=== PATIENT | female | born 2005 | race Asian ===

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

== ENCOUNTER 2024-11-28 02:44 | Observation (INO) | payer OTHER ==
[~2024-11-28] VITALS: Ht 165.1 cm; Wt 54.4 kg
[2024-11-28 03:49] LABS: BASOPHILS ABSOLUTE AUTO 0.05 K/mm3 (0.00-0.23); BASOPHILS PERCENT AUTO 1 % (0-2); EOSINOPHILS ABSOLUTE AUTO 0.06 K/mm3 (0.00-0.68); EOSINOPHILS PERCENT AUTO 1 % (0-6); Hematocrit 38.6 % (33.0-51.0); Hemoglobin 13.4 g/dL (11.5-16.0); IMMATURE GRAN ABSOLUTE AUTO 0.04 K/mm3 (0.00-0.10); IMMATURE GRAN PERCENT AUTO 1 % (0-1); LYMPHOCYTES ABSOLUTE AUTO 2.27 K/mm3 (0.84-5.20); LYMPHOCYTES PERCENT AUTO 26 % (21-46); MONOCYTES ABSOLUTE AUTO 0.60 K/mm3 (0.16-1.47); MONOCYTES PERCENT AUTO 7 % (4-13); Mean Corpuscular HGB Conc 34.7 g/dL (31.5-36.5); Mean Corpuscular Volume 90 fL (80-100); NEUTROPHILS ABSOLUTE AUTO 5.70 K/mm3 (1.96-9.15); NEUTROPHILS PERCENT AUTO 65 % (41-73); NRBC ABSOLUTE 0.00 K/mm3 (0.00-0.02); NRBC Auto 0.0 /100 WBC (0.0-0.2); Platelet Count 314 K/mm3 (150-400); RDW Coefficient Variation 11.7 % (11.7-14.2); RDW Standard Deviation 38.0 fL (35.1-46.3)
[2024-11-28 04:10] LABS: Ethanol (Alcohol), Blood, Med <3 mg/dL; Magnesium, Blood 2.2 mg/dL (1.6-2.4); Salicylate <1.7 mg/dL (2.8-20.0)
[2024-11-28 04:11] LABS: Alanine Aminotransfer (ALT/SGP 19 U/L (12-78); Albumin, Blood 4.3 g/dL (3.4-5.0); Albumin/Globulin Ratio 1.2 (0.8-1.8); Anion Gap 10 mmol/L (3-11); Aspartate Aminotrans (AST/SGOT 16 U/L (12-37); Bilirubin, Total 0.7 mg/dL (0.1-1.0); Blood Urea Nitrogen 11 mg/dL (8-24); CO2, Blood 25 mmol/L (21-32); Calcium, Blood 9.2 mg/dL (8.5-10.1); Chloride, Blood 106 mmol/L (98-108); Creatinine, Blood 0.68 mg/dL (0.40-1.00); Globulin, Blood 3.6 g/dL (2.2-4.0); Glucose, Blood 110 mg/dL (70-99); Potassium, Blood 3.6 mmol/L (3.5-5.5); Sodium, Blood 137 mmol/L (136-145); Total Protein, Blood 7.9 g/dL (6.4-8.2)
[2024-11-28 04:12] LABS: Acetaminophen, Random <2.0 ug/mL (10.0-30.0)
[2024-11-28 11:16] VITALS: BP 120/80
[2024-11-28] MEDS ORDERED: BUSP5 PO (15:25)
[2024-11-28] MEDS ORDERED: LATUDA20 M1 PO (15:25)
== END 2024-11-28 13:48 | disposition other institution (70) ==
LOC: ER 02:44 → EOR 02:45
PROVIDERS: ADMIT Student in an Organized Health Care Education/Training Program
DX: F32.A Depression, unspecified (principal); R45.851 Suicidal ideations; I10 Essential (primary) hypertension
CPT/HCPCS: 80053; 80320; 83735; 85025; A9270; G0480

== ENCOUNTER 2024-11-28 11:04 | Inpatient (IN) | payer OTHER ==
[~2024-11-28] VITALS: Ht 167.6 cm; Wt 72.3 kg
[2024-11-28] MEDS ORDERED: Polyethylene Glycol 3350 17 gm PO PRN (11:45)
[2024-11-28] MEDS ORDERED: DiphenhydrAMINE HCl 50 MG/ML 1ML Vial IM PRN (11:45)
[2024-11-28] MEDS ORDERED: Ondansetron 4 MG SoluTab MM PRN (11:45)
[2024-11-28] MEDS ORDERED: Aluminum Hydroxide 320MG/5ML 473 ML PO PRN (11:45)
[2024-11-28] MEDS ORDERED: LORazepam 2 MG/ML 1ML Injection IM PRN (11:50)
[2024-11-28] MEDS ORDERED: FLU VACC TS2025-26(6MOS UP)/PF 45 MCG/0.5 ML SYRINGE IM ONE (11:55)
[2024-11-28] MEDS ORDERED: Haloperidol Lactate Inj. 5 MG/ML Injection IM PRN (11:55)
[2024-11-28] MEDS ORDERED: LATUDA20 M1 PO ×2 (15:25)
[2024-11-28] MEDS ORDERED: BUSP5 PO ×2 (15:25)
--- NOTE | 2024-11-28 15:34 | NUR ---
Admission- Patient was admitted this afternoon from the crisis bed at [facility]. She was experiencing SI, and anxiety with insomnia. Patient expressed that she was going to take a bottle of pills if allowed to go home. Patient has a history of cutting, with recent slash austin on bilateral upper thighs. These are superficial wounds. Patient reports only recently starting new medications- 1) Buspirone 5 mg daily, and Lurasidone 20mg daily. Last time she took them was yesterday. Patient reports recently being diagnosed as bipolar. The medications were prescribed through [facility], and online provider. The patient was enrolled in college and was having difficulty due to the brain fog that comes with her anxiety. She also states she dissociates. She feels like she is not real, or not really here. Cutting helps her to feel real. Patient states that she has a supportive family, whom she lives with. She denies any abuse. She denies any medical diagnoses. Patient reports that recently her appetite, and sleep have been poor. Food makes her nauseated and she will sometimes induce vomitting to reduce the nausea. She states her depression is bad, anxiety high, and SI is present but she wants to get better. She feels overwhelmed with life. She reports that her mental health diagnosis include Bipolar, Adjustment disorder and anxeity disorder- all diagnosed on November 11. Patient does not want a flu vaccine.
[2024-11-28 16:52] LABS: U Amphetamine Screen Not Detected; U Barbiturate Screen Not Detected; U Benzodiazapine Screen DETECTED; U Buprenorphine Screen Not Detected; U Cannabinoids Screen Not Detected; U Cocaine Screen Not Detected; U Methadone Screen Not Detected; U Methamphetamine Screen Not Detected; U Opiates Screen Not Detected; U Oxycodone Screen Not Detected; U Phencyclidine Screen Not Detected
[2024-11-28 19:08] VITALS: BP 112/70
[2024-11-28] MEDS ORDERED: LURASIDONE (LATUDA) 20 MG TABLET PO SCH (21:00)
--- NOTE | 2024-11-29 04:32 | NUR ---
SHIFT SUMMARY PATIENT UP IN MILIEU, C/O FEELING STUFFED UP, REQUESTING NASAL SPRAY OR ALBUTEROL INH. LUNG SOUNDS ARE CLEAR, SLIGHT NASAL WHEEZE WHEN SHE TAKES DEEP BREATH THROUGH HER NOSE. WILL PASS ON TO DAYSHIFT TO ASK FOR PRN NASAL SPRAY. PATIENT VERBALIZED FEELING ANXIOUS AND DISSOCIATED, ASKING FOR ATIVAN, EXPLAINED TO PATIENT THE ADDICTIVE QUALITY OF ATIVAN AND MOST LIKE NOT BE ABLE TO USE OUTPATIENT. HYDROXYZINE GIVEN. AFTER SNACK PATIENT WATCHING MOVIE WITH PEERS. DENIES SI, HI, OR AVTH. PATIENT REQUESTING SLEEP AID VERBALIZED MELATONIN NOT EFFECTIVE WHEN TRIED AT HOME, TRAZODONE GIVEN. PATIENT SLEEPING WELL T/O NIGHT RESP EVEN AND UNLABORED CONTINUE TO MONITOR Q15MIN.
[2024-11-29] MEDS ORDERED: Multivitamins 1 Tab PO SCH (09:00)
[2024-11-29 09:10] VITALS: BP 117/78
--- NOTE | 2024-11-29 16:58 | NUR ---
SHIFT SUMMARY PT DENIED SI/HI AND ANY AND ALL HALLUCINATIONS. SHE WAS SLIGHTLY MORE DEPRESSIVE IN THE AM AND DESCRIBED HER MOOD FEELING "OUT OF IT." SHE SEEMED TO BECOME MORE EUTHYMIC THE SHIFT WENT ON. SHE INTERACTED WITH HER PEERS AND WENT TO GROUPS. SHE WAS COMPLIANT WITH ALL MEDICATIONS AND DID NOT RECIEVE ANY PRN'S THIS SHIFT. SHE WAS ADMINISTERED HER FIRST DOSE OF ABILIFY THIS AFTERNOON. SHE WAS REORIENTED TO PHONE AND VISITATION TIMES.
[2024-11-29 19:15] VITALS: BP 117/81
[2024-11-29] MEDS ORDERED: Fluticasone 0.05% Nasal Spray PRN (19:15)
--- NOTE | 2024-11-29 19:20 | NUR ---
Order for Flonase for Allergies and nasal congestion received. Will administer as soon as received
--- NOTE | 2024-11-30 01:36 | NUR ---
Patient took 2nd trazodone at 0115 after being awake for about 30 minutes and starting to feel restless. Will continiue monitoring every 15 minutes for comfort and safety
--- NOTE | 2024-11-30 04:48 | NUR ---
Noelle is alert and oriented times four. She is very quiet when she is out in the milieu. During her evening assessment, she told this RN that she is afraid for herself when she has to leave here. She denied outright suicidality, but left a window there that was concerning. She denied HI and AVTH. Unable to sleep shortly after midnight, she was given another trazodone. She has been sleeping since. Flonase was ordered for her which gave her relief from her nasaal congestion. Will continue close observation every 15 minutes for safety and comfort
--- NOTE | 2024-11-30 07:43 | NUR ---
PT HAD LAB DRAW THIS AM, AFTER PROCEDURE COMPLETED PT CO FEELING LIGHT HEADED AND SEEING "SPOTS," PT NOTED TO BE PALE AND SLIGHTLY DIAPHORETIC, BREATHING COACHING AND ENCOURAGED PT TO LAY BACK WHILE PLACING MYSELF IN FRONT OF PT, PT HAD WITNESSED SYNCOPAL EPISODE, AIRWAY WAS MAINTAINED, PT IN SEATED POSITION AND PROTECTED FROM FALLING. PT WAS HYPOTENSIVE AND BRADYCARDIC, AFTER APPROX 5 MINUTES PT MORE ALERT TAKING SMALL SIPS AND NO LONGER PALE AND DIPHORETIC, HR 80 WITH BP 93/63, PT WAS ABLE TO WALK BACK TO ROOM, STEADY GAIT, AND LAID BACK IN BED, REPORTS FEELING BETTER.
[2024-11-30 07:48] LABS: CHOL/HDL RATIO 3.1; Cholesterol 156 mg/dL (50-200); HDL Cholesterol 51 mg/dL (>39); LDL/HDL RATIO 1.7; Low Density Lipoprotein Chol 89 mg/dL (0-110); Triglycerides 81 mg/dL (30-140); Very Low Density Lipoprot Chol 16 mg/dL (6-28)
[2024-11-30 09:04] VITALS: BP 124/77
--- NOTE | 2024-11-30 11:10 | NUR ---
DISCHARGE NOTE: 11:14 PT DISCHARGED TO [facility] WITH ALL OF HIS BELONGINGS AND HIS PRINTED DISCHARGE INSTRUCTIONS. PT IS BEING TRANSPORTED TO [facility] BY TRANSPORT VEHICLE. PT EXPRESSED READINESS TO DISCHARGE.
--- NOTE | 2024-11-30 13:04 | NUR ---
SHIFT ASSESSMENT: PT DENIED SI, HI, AVH AND PHYSICAL PAIN. SHE REPORTED FEELING "BETTER" AFTER THE SYNCOPAL EVENT EARLIER. SHE RATED HER ANXIETY 4/10w. SHE DESCRIBED HER MOOD "HOPEFUL." HER AFFECT WAS CONGRUENT TO HER STATED MOOD. HER GOALS WERE TO "TALK TO MY PARENTS." PT WAS PLEASANT COOPERATIVE WITH CARE. LATER SHE EXPRESSED THE DESIRE TO TALK ABOUT HER FEELINGS. SHE REPORTED THAT SHE FEELS LIKE SHE HAS DONE TOO MANY BAD THINGS TO FRIENDS WHILE SHE WAS MANIC AND THAT MAYBE THEY CAN'T FORGIVE HER. AFTER SOME CONVERSATION SHE SAID, "I THINK I SHOULD BE THINKING ABOUT THE FUTURE." SHE REPORTED HAVING SOME, "SUPERFICIAL CUTS ON BOTH THIGHS. I CUT TO FEEL REAL AND TO PUNISH MYSELF." PT HAS BEEN WALKING IN THE HALLWAY. Q 15 MINUTE SAFETY CHECKS CONTINUE FOR SAFETY.
--- NOTE | 2024-11-30 18:15 | NUR ---
ASSUMED PT CARE @1400. THERE HAVE BEEN NO CLINICAL CHANGES. PT HS NO QUESTIONS OR CONCERNS. WILL CONTINUE PLAN OF CARE UNTIL SHIFT CHANGE
--- NOTE | 2024-11-30 18:38 | NUR ---
ASSUME PT CARE @ 1400. NO CLINICAL CHNGES. WILL CONTINUE POC UNTIL SHIFT CHANGE
[2024-11-30 20:48] VITALS: BP 123/83
--- NOTE | 2024-12-01 04:23 | NUR ---
Patient is alert and oriented times four. She is extremely tires after not sleeping well for the last few nights despite getting two trazodones from this RN about 3-4 hours apart. She always initially fally asleep, then gets up between [id number] and requires another. This morning, she was very anxious about her "lack of progress". She states she is still intermittantly suicidal and is very concerned about all the bridges she burnt when she was manic. Vistaril given for anxiety. Will continiue close observation every 15 minutes for safety and cofort.
[2024-12-01 08:49] VITALS: BP 111/75
--- NOTE | 2024-12-01 16:31 | NUR ---
PT TO NURSING STATION REPORTING ANXIETY OF 9/10. SHE STATES THAT SHE TRIED TO TAKE A NAP AND IS UNABLE. SHE STATES THAT THIS IS GIVING HER INCREASED ANXIETY. VISTRIL GIVEN FOR MASS SCORE OF 5. PT IS OW WALKING THE [place] TALKING WITH A PEER. SHE APPEARS CALM.
--- NOTE | 2024-12-01 16:51 | NUR ---
SHIFT SUMMARY ENDORSES ANXIETY, W/ C/O OF SI AND NO INTENT TO ACT/PLAN WHILE ON UNIT, AT 1300~. AT THIS TIME DENIES SI, HI, AVTH. THERAPEUTIC COMMUNICATION/EDUCATION GIVEN TODAY. DISCUSSED W/ PT WHAT IS CAUSING HER ANXIETY AND SHE STATES THAT IT IS PRIMARILY DRIVEN BY WANTING TO TAKE A GAP YEAR FROM SCHOOL, BUT ANXIOUS ABOUT FALLING BEHIND; AND NOT WANTING TO GO BACK TO SCHOOL AT THIS TIME. PT STATES SHE FEELS "A LOT" OF PRESSURE FROM PARENTS WHO WANT HER TO GO BACK THIS FEBRUARY. NO OTHER ACUTE EVENTS TODAY. PRINTED OUT INFORMATION ABOUT NURSING RESEARCHER D/T POTENTIALLY WANTING TO PURSUE A NURSING CAREER IN A LAB SETTING.
[2024-12-01 19:48] VITALS: BP 122/86
--- NOTE | 2024-12-02 04:26 | NUR ---
Patient alert and oriented times four. Flat tired affect. Paced the halls with a male peer for most of the evening before attending snack then going to bed. Patient took increased dose of Buspar, and new dose of Ambien at 2105, then woke upset at 2345 and asked for another pill to help her sleep. She stated she couldn't lay still and was feeling anxious. Vistaril was given for a Mass score of 3. At 0030, She was still feeling anxious and unable to sleep. 50 mg Trazodone was given at that time. Patient got oob at 0300 asking the MHA for more sleep medication and was told to come to the desk and talk to her nurse. The patient went back to sleep. Then at 0420, the patient came out and asked for another Trazodone . This nurse told her it was too late for another sleeping pill, and too early for another vistaril. It was suggested that she might go into the Sensory Room with her book for a while. Patient then went back to her room grabbed her book and went to the sensory. Evening assessment patient denied having SI at that time, but said it "comes and goes" no HI, or AVTH noted. Will Continue monitoring every 15 minutes for safety and comfort
[2024-12-02 08:48] VITALS: BP 127/88
--- NOTE | 2024-12-02 16:57 | NUR ---
SHIFT SUMMARY PT DENIES HI, AVTH. ENDORSES PASSIVE SI (NOT WANTING TO EXIST), BUT NO INTENT/PLAN TO ACT WHILE ON UNIT. PT CONTINUES TO ENDORSE ANXIETY. ATIVAN GIVEN PER EMAR. PT IS IN GROUP ROOM WATCHING TV/READING TV AT THIS TIME. ENDORSES MEDICATION IS EFFECTIVE. NO OTHER ACUTE EVENTS TODAY.
[2024-12-02 19:10] VITALS: BP 123/92
--- NOTE | 2024-12-03 05:18 | NUR ---
SHIFT SUMMARY Pt is A&O, calm, cooperative, polite, appropriately dressed and groomed, eye contact is appropriate. Pt stated that her mood was "pretty good," affect is constricted. Pt denies SI, HI, and hallucinations. Pt endorsed menstrual cramps and pain 4/10w and requested PRN ibuprofen and acetaminophen with her HS meds. Pt requested PRN trazodone for sleep. Pt was active on the milieu this evening, watching TV and walking the mills with a peer. Pt was awake at about 2345, stating that she couldn t sleep. Pt given second PRN dose of trazodone and PRN hydroxyzine for MASS-2. She returned to her room after receiving her PRNs. She appeared to be awake at about 0500. Staff continues to monitor q15m for safety and wellness.
[2024-12-03 08:47] VITALS: BP 121/73
--- NOTE | 2024-12-03 17:25 | NUR ---
SHIFT SUMMARY PT HAS BEEN UP MOST ALL OF THE SHIFT, ENGAGED IN MEALS/SNACKS AND GROUP. SHE DID SPEND A SHORT AMT OF TIME RESTING IN HER ROOM THROUGHOUT THE DAY, AT THIS TIME SHE IS WATCHING A MOVIE WITH HER PEERS. SHE HAS DENIED ALL SI/HI/AVH BUT DOES ENDORSE FEELING QUITE ANXIOUS. WE TRIED VISTARIL AND ZYPREXA WITH RELIEF. HER ZYPREXA WAS INCREASED FROM 5mg TO 10mg FOR BEDTIME, ALSO WILL BE STARTING CLONADINE TONIGHT. PT IS APPROPRIATE, POLITE AND COOPERATIVE. SHE HAS RECEIVED Q15 MIN VISUAL SAFETY CHECKS THROUGHOUT THE SHIFT.
[2024-12-03 19:34] VITALS: BP 112/73
--- NOTE | 2024-12-03 21:36 | NUR ---
SHIFT SUMMARY Pt is A&O, calm, cooperative, polite, appropriately dressed and groomed, eye contact is appropriate. Pt stated that her mood was "anxious, but more calm" affect is constricted. Pt denies SI, HI, and hallucinations. Pt denied current pain. Pt received new medication, clonidine, with HS meds and was educated about the possible side effects. Pt requested PRN trazodone for sleep. At 2105 pt requested PRN fluticasone nasal spray. Pt was active on the milieu this evening, watching TV with peers. Staff continues to monitor q15m for safety and wellness.
--- NOTE | 2024-12-04 03:45 | NUR ---
TRANSFER OF CARE NO ACUTE EVENTS SINCE ASSUMING CARE FROM KADE
--- NOTE | 2024-12-04 04:48 | NUR ---
ASSUMED CARE AT 4AM. PATIENT CURRENTLY SLEEPING. NO NOTED BEHAVIORS OR ISSUES. WE WILL CONTINUE TO MONITOR EVERY 15 MINUTES FOR SAFETY AND COMFORT.
--- NOTE | 2024-12-04 06:09 | NUR ---
PATIENT WOKE UP AT 5:30AM REQUESTING A TRAZADONE. INFORMED PATIENT IT WAS MORNING TIME AND THAT MEDICATION IS FOR THE PM. PATIENT ROLLED OVER AND SEEMINGLY WENT BACK TO SLEEP.
[2024-12-04 08:55] VITALS: BP 124/76
--- NOTE | 2024-12-04 17:21 | NUR ---
SHIFT SUMMARY PT HAS HAD A GOOD DAY TODAY, SHE STATED THIS AFTERNOON THAT SHE REALLY FEELS BETTER AFTER FINALLY GETTING SOME GOOD SLEEP, ATTENDED MEALS/BREAKS, NO GROUPS WERE PROVIDED TODAY. PT WOKE AFTER NAPPING AFTER LUNCH AND HAS BEEN INVOLVED WITH PEERS, WALKING THE [place]ON[place], TV AND PLAYING GAMES. SHE HAS GOOD EYE CONTACT, CLEAR SPEECH, COOPERATIVE, DENIES SI/HI/AVH. SHE WAS ANXIOUS AFTER BKFT AND RECEIVED A VISTARIL PER HER REQUEST, MASS SCORE OF 3. PT HAS RECEIVED VISUAL SAFTERY CHECKS Q15 MIN THROUGHOUT THE SHIFT
[2024-12-04 20:00] VITALS: BP 119/70
--- NOTE | 2024-12-04 20:44 | NUR ---
LONG DISCUSSION HELD REGARDING GOALS AND PLANS FOR AFTER DISCHARGE. DISCUSSED GOALS OF MEDICATION THERAPY AND EFFECTIVLY MANAGING MEDICATIONS. REVIEWED SIDE EFFECTS AND DISCUSSED ADAPTING TO NEW MEDICATIONS BUT TO COMMUNICATE ISSUES WITH CARE PROVIDER. SHE STATES CURRENT MED IS MAKING HER SLEEPY DURING THE DAY. REVIEWED PLANS FOR SLEEP AND NUTRITION MANAGEMENT AFTER DISCHARGE SHE STATES SHE STRUGGLED WITH THESE PREVIOUSLY. CURRENT PLAN INCLUDES MOVING BACK HOME WITH PARENTS AND PT STATES SHE DOES BETTER AT HOME BECAUSE IT IS MORE STRUCTURED. DOES EXPRESS THAT HER PARENTS MAY NOT BE SUPPORTIVE REGARDING MENTAL HEALTH DIAGNOSIS "THEY DON'T KNOW MUCH ABOUT IT." STATES WHEN GROWING UP AND SHE EXPRESSED SYMPTOMS THEY WOULD TELL HER TO "PRAY." PT HAS GOOD INSIGHT TO MENTAL HEALTH SYMPTOMS AT THIS TIME.
--- NOTE | 2024-12-04 20:48 | NUR ---
PT STATES NASAL SPRAY IS MAKING HER NOSE IRRITATED AND CAUSING BLEEDING. SHE REQUESTS TO CHANGE TO AN ORAL ALLERGY PILL. STATES SHE TOOK GENERIC MEDS FROM [facility] WITH A GREEN BOTTLE TOP FOR ALLERGIES (CETERIZINE/ZYRTEC) AND REQUESTS TO TAKE THIS AGAIN IT WORKED.
--- NOTE | 2024-12-04 23:48 | NUR ---
MID SHIFT SUMMARY: PT RECEIVED SECOND TRAZADONE PER REQUEST FOR ASSISTING IN SLEEP. CURRENTLY LAYING IN BED, EYES CLOSED, DEEP EVEN BREATHING. NO FURTHER CHANGES TO STATUS DURING LAST FEW HOURS.
--- NOTE | 2024-12-05 04:15 | NUR ---
END OF SHIFT SUMMARY Assumed care at 2400. Patient woke at 0130 asking for something to help her sleep. Mass score completed and score of 3 attained. Vistaril given and patient back to sleep in about a half an hour. No further episodes of anxiety noted. Will continue close observation every 15 minutes for safety and comfort
[2024-12-05 09:00] VITALS: BP 106/70
[2024-12-05] MEDS ORDERED: Atomoxetine HCL 40 MG Cap PO SCH (11:00)
--- NOTE | 2024-12-05 11:57 | NUR ---
SHIFT ASSESSMENT PT IS ALERT AND ORIENTED, WELL GROOMED, GOOD EYE CONTACT, CLEAR REGULAR SPEECH. SHE DESCRIBES LOOSE ASSOCIATION AND FEELING LIKE THE MEDICATION IS CAUSING HER TO FEEL THIS WAY. SHE SPOKE WITH PROVIDER ABOUT TRYING A NEW MEDICATION WHILE SHE IS HERE. PROVIDER HAS ADDED STRATERRA 40MG PO DAILY AND SHE HAS RECEIVED HER FIRST DOSE. SHE HAS BEEN UP SINCE 2AM AND HAS BEEN ENCROUAGED TO NOT NAP TODAY IN THE HOPES SHE WILL SLEEP BETTER TONIGHT. SHE IS IN AGREEMENT WITH THIS. SHE HAS BEEN TO MEAL/SNACK AND PARTICIPATED IN MORNING GROUP. SHE WILL CONTINUE TO RECEIVE Q15 MIN VISUAL SAFETY CHECKS THROUGHOUT THIS SHIFT
--- NOTE | 2024-12-05 15:15 | NUR ---
SHIFT SUMMARY PT HAS CONTINUED TO ENDORSE DISASSOCIATION FEELINGS. GAVE HER A PRINTOUT ON THE NEW STRATERRA SHE HAS STARTED. SHE HAS SPENT THE AFTERNOON IN THE SENSORY ROOM WITH PEERS, ALL ARE READING BOOKS. SO FAR SHE HAS MANAGED TO STAY AWAKE ALL DAY AND CONTINUES TO BE MONITORED FOR SAFETY
--- NOTE | 2024-12-06 04:57 | NUR ---
SHIFT SUMMARY Pt is A&O, calm, cooperative, polite, appropriately dressed and groomed, eye contact is appropriate. Pt stated that her mood was "a little anxious, but more calm," affect is constricted. Pt denies SI, HI, and hallucinations. Pt denied current pain. Pt requested PRN trazodone for sleep and her nasal spray. At about 2230 pt was up to nurse station and requested her second dose of trazodone and something for anxiety. Pt received PRN hydroxyzine for MASS 2. Pt was active on the milieu this evening, watching TV with peers. Pt approached the nurse station at about 0115 requesting something for anxiety, but it was too soon for additional hydroxyzine. Pt returned to her room. Staff continues to monitor q15m for safety and wellness.
[2024-12-06 09:37] VITALS: BP 118/77
--- NOTE | 2024-12-06 16:13 | NUR ---
SHIFT SUMMARY PT WAS COMPLIANT WITH ALL MEDICATIONS THIS SHIFT. SHE WAS GIVEN PRN VISTARIL IN THE AM FOR ANXIETY SHE RATED 9/10, MASS=2. IN THE AFTERNOON SHE RECIEVED PRN ZYPREXA FOR ANXIETY RATED 9/10, MASS=4. PT EXPRESSED SHE WAS NOT SURE SHE WAS READY TO D/C HOME JUST YET. SHE MET WITH KAREN SILVERMAN R/T ISSUES SHE IS HAVING WITH COLLE[employer]. PT WAS COMPLIANT WITH ALL MEDICATIONS AND SHE JOINED IN GROUPS AND THE MILIEU. SHE STATES SHE IS NOT SURE IF THE STRATTERA HAS HAD AN AFFECT ON HER ABILITY TO FOCUS. SHE DENIES HI/SI/AVH.
--- NOTE | 2024-12-06 16:14 | NUR ---
Upon receiving a referral for spiritual care, I visited the patient. She immediately shares about the many stressors that she has, the deep questions that she has about her path, her career choices, schooling and the anxiety that, to her, seems unmanageable. We explore her questions, her stressors, her resources and her coping skills. She shares about the deep ache, weight, and emotional pain that she feels every day. We look and the many possible ways to discover meaning, purpose, peace and hope. She shares and her solid family and friends support system and her Spiritism beliefs. She displays evidence of reduced stress and after I provided prayer. She voices that the paryer was meaningful to her and added to her peace. I will continue to remain available to the patient and family.
--- NOTE | 2024-12-06 16:24 | NUR ---
PATIENT ATTENDED GROUP FOR 60 MINUTES AND CREATED A PILLOW AND SCRATCH ART. THE PATIENT WAS ENGAGED WITH BOTH STAFF AND PEERS AND WAS RESPECTFUL AND SUPPORTIVE OF PEERS THROUGHOUT THEIR TIME IN GROUP.
[2024-12-06 20:34] VITALS: BP 123/85
--- NOTE | 2024-12-07 04:31 | NUR ---
SHIFT SUMMARY PT DENIED ANY SI, HI, THOUGHTS OF SELF HARM OR AVTH. SHE REPORTS HER MOOD "OK". STATES SHE HAD A GOOD VISIT WITH HER PARENTS AND THE [facility] TODAY. STATES SHE WOULD LIKE TO START BUILDING A RELATIONSHIP WITH GOD. AFFECT IS CONSTRICTED. SHE IS CALM AND COOPERATIVE WITH CARE. INITIATES CONVERSATION WITH STAFF AND PEERS. SHE HAD EVENING SNACK, WATCHED TV, AND WAS COMPLIANT WITH SCHEDULED MEDS. SHE WENT TO BED AROUND 2145. PT HAS REMAINED IN BED THROUGHOUT THE NIGHT. Q15 MINUTE CHECKS TO CONTINUE PER PT SAFETY AND WELLNESS.
[2024-12-07 08:50] VITALS: BP 126/81
--- NOTE | 2024-12-07 17:21 | NUR ---
SHIFT NOTE PT DENIES SI/HI/AVTH THIS SHIFT. SHE STATES SHE HAD VERY MILD ANXIETY AND DID NOT NEED PRN ANTIANXIETY MEDICATIONS. SHE STATES SHE FEELS THE KLONOPIN IS WORKING AND SHE FEELS BETTER. PT WAS CALM AND EUTHYMIC THIS SHIFT. SHE WENT TO GROUPS AND WAS COOPERATIVE IN THE MILIEU. NO PRN MEDICATIONS WERE GIVEN THIS SHIFT. PT STATES SHE SLEPT WELL LAST PM. THERE ARE NOT ACUTE BEHAVIORS TO REPORT THIS SHIFT.
--- NOTE | 2024-12-08 04:54 | NUR ---
SHIFT SUMMARY 19 YEAR-OLD FEMALE PRESENTS WELL GROOMED. SHE SPEAKS IN A CLEAR VOICE AND IN AN APPROPRIATE VOLUME. SHE IS ABLE TO MAKE AND KEEP EYE CONTACT DURING CONVERSATIONS. AT THE TIME OF ASSESSMENT, SHE DENIED SI, HI, AND AVTH. SHE DESCRIBED HER MOOD "PRETTY GOOD". SHE ATTENDED ALL MEALS AND GROUP ACTIVITIES. SHE INTERACTED WELL WITH STAFF AND PEERS. SHE WAS COMPLIANT WITH CARE AND MEDICATION ADMINISTRATION. SHE CONTINUES TO BE MONITORED Q15 MINUTES FOR CARE AND SAFETY
[2024-12-08 08:58] VITALS: BP 133/80
--- NOTE | 2024-12-08 17:53 | NUR ---
SHIFT SUMMARY PT DENIES SI/HI/AVTH. SHE WAS COMPLIANT WITH ALL MEDICATIONS. SHE DENIES ANXIETY. SHE WAS CALM AND PARTICIPATED IN GROUPS AND ACTIVITIES IN THE MILIEU. HER AFFECT IS EUTHYMIC. SHE STATES SHE SLEPT VERY WELL LAST NIGHT AND COULD NOT REMEBER IF SHE ASKED FOR TRAZADONE, AND THIS RN INFORMED HER SHE DID NOT. PT HAS NEED NEEDED ANY PRN MEDICATIONS THIS SHIFT. SHE HAD A VISIT FROM HER MOTHER AND SISTER IN THE EVENING WHILE SHE ATE HER DINNER. PT HAD NO ACUTE BEHAVIORS THIS SHIFT. PLAN TO D/C HOME TOMORROW.
[2024-12-08 19:24] VITALS: BP 116/80
--- NOTE | 2024-12-09 04:30 | NUR ---
SHIFT SUMMARY 19 YEAR-OLD FEMALE PRESENTS WELL GROOMED. SHE IS ABLE TO MAKE AND KEEP EYE CONTACT DURING CONVERSATIONS. AT THE TIME OF HER ASSESSMENT, SHE STATED THAT SHE WAS FEELING "REALLY GOOD". SHE ALSO DENIED SI, HI, AND AVTH. SHE ATTENDED MEALS, SNACK, AND DAY ROOM. SHE INTERACTED WELL WITH STAFF AND PEERS. SHE WAS COMPLIANT WITH MEDICATION ADMINISTRATION. SHE CONTINUES TO BE MOITORED Q15 MINUTES FOR CARE AND SAFETY
[2024-12-09 08:17] VITALS: BP 119/71
[2024-12-09] MEDS ORDERED: BUSP10 PO ×2 (11:20)
[2024-12-09] MEDS ORDERED: CLON.5 PO ×2 (11:21)
[2024-12-09] MEDS ORDERED: OLAN10 PO ×2 (11:21)
--- NOTE | 2024-12-09 13:25 | NUR ---
Patient states that she may DC home today. 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 We talk about the the tools, resources and medications that she has acquired that will be helpful and we explore a good spiritual care discharge plan. We discussed prayers, Bible reading and mosque support for possible paths to energize the spiritual paths toward greater peace as she moves forward. The patient responded well and showed signs of greater peace.
[2024-12-09] MEDS ORDERED: TRAZ50 PO ×2 (13:45)
--- NOTE | 2024-12-09 14:45 | NUR ---
DISCHARGE PT OUT AT 1445 W/ BELONGINGS, DISCHARGE INSTRUCTIONS, EDUCATION, AND SCRIPT FOR NAIMA. DISCHARGE FORM SIGNED, NO QUESTIONS FROM PT AT THIS TIME. PT DENIES SI, HI, AVTH. ENDORSED ANXIETY ABOUT DISCHARGE TODAY, BUT WAS "EXCITED" ABOUT LEAVING TODAY.
== END 2024-12-09 14:45 | disposition home or self-care (01) | DRG 885 ==
LOC: BHU 11:04
PROVIDERS: ADMIT Psychiatry & Neurology Psychiatry
DX: F31.32 Bipolar disorder, current episode depressed, moderate (principal); R45.851 Suicidal ideations; F43.25 Adjustment disorder with mixed disturbance of emotions and conduct; F41.9 Anxiety disorder, unspecified; Z79.899 Other long term (current) drug therapy; Z79.1 Long term (current) use of non-steroidal anti-inflammatories (NSAID); Z98.890 Other specified postprocedural states; Z28.21 Immunization not carried out because of patient refusal
CPT/HCPCS: 36415; 80061; 81025; 83036; A9270

== ENCOUNTER 2024-12-14 11:47 | Observation (INO) | payer OTHER ==
[~2024-12-14] VITALS: Ht 160 cm; Wt 59.0 kg
[~2024-12-14 11:47] MED LIST: BUSP10 PO; BUSP5 PO; CLON.5 PO; Etomidate 2MG / ML 10ML Vial IV ONE; LATUDA20 M1 PO; OLAN10 PO; Rocuronium Bromide 10 MG/ML 5ML Injection IV ONE; TRAZ50 PO
[2024-12-14 12:33] LABS: BASOPHILS ABSOLUTE AUTO 0.05 K/mm3 (0.00-0.23); BASOPHILS PERCENT AUTO 0 % (0-2); EOSINOPHILS ABSOLUTE AUTO 0.05 K/mm3 (0.00-0.68); EOSINOPHILS PERCENT AUTO 0 % (0-6); Hematocrit 36.5 % (33.0-51.0); Hemoglobin 12.3 g/dL (11.5-16.0); IMMATURE GRAN ABSOLUTE AUTO 0.15 K/mm3 (0.00-0.10); IMMATURE GRAN PERCENT AUTO 1 % (0-1); LYMPHOCYTES ABSOLUTE AUTO 1.54 K/mm3 (0.84-5.20); LYMPHOCYTES PERCENT AUTO 8 % (21-46); MONOCYTES ABSOLUTE AUTO 0.39 K/mm3 (0.16-1.47); MONOCYTES PERCENT AUTO 2 % (4-13); Mean Corpuscular HGB Conc 33.7 g/dL (31.5-36.5); Mean Corpuscular Volume 92 fL (80-100); NEUTROPHILS ABSOLUTE AUTO 16.99 K/mm3 (1.96-9.15); NEUTROPHILS PERCENT AUTO 89 % (41-73); NRBC ABSOLUTE 0.00 K/mm3 (0.00-0.02); NRBC Auto 0.0 /100 WBC (0.0-0.2); Platelet Count 260 K/mm3 (150-400); RDW Coefficient Variation 11.5 % (11.7-14.2); RDW Standard Deviation 39.2 fL (35.1-46.3)
[2024-12-14] MEDS ORDERED: NS 1,000 ML IV SCH ×4 (12:45→18:45)
[2024-12-14 12:51] LABS: Ethanol (Alcohol), Blood, Med <3 mg/dL; Salicylate <1.7 mg/dL (2.8-20.0)
[2024-12-14 12:56] LABS: Alanine Aminotransfer (ALT/SGP 13 U/L (12-78); Albumin, Blood 4.3 g/dL (3.4-5.0); Albumin/Globulin Ratio 1.5 (0.8-1.8); Anion Gap 16 mmol/L (3-11); Aspartate Aminotrans (AST/SGOT 20 U/L (12-37); Bilirubin, Total 2.9 mg/dL (0.1-1.0); Blood Urea Nitrogen 13 mg/dL (8-24); CO2, Blood 20 mmol/L (21-32); Calcium, Blood 8.0 mg/dL (8.5-10.1); Chloride, Blood 104 mmol/L (98-108); Creatinine, Blood 0.78 mg/dL (0.40-1.00); Globulin, Blood 2.8 g/dL (2.2-4.0); Glucose, Blood 260 mg/dL (70-99); Potassium, Blood 3.0 mmol/L (3.5-5.5); Sodium, Blood 137 mmol/L (136-145); Total Protein, Blood 7.1 g/dL (6.4-8.2)
[2024-12-14 12:57] LABS: Acetaminophen, Random <2.0 ug/mL (10.0-30.0)
[2024-12-14] MEDS ORDERED: LORazepam 2 MG/ML 1ML Injection IV ONE ×2 (13:35→18:45)
[2024-12-14 14:33] LABS: Source, Urine Clean Catch
[2024-12-14 14:44] LABS: Bilirubin, Urine Neg (Neg); Color, Urine Yellow (P-Yellow); Glucose Qualitative, Urine 4+ (Neg); Ketones, Urine Neg (Neg); Leukocyte Esterase, Urine Neg (Neg); Protein, Urine Neg (Neg); Specific Gravity, Urine 1.020 (1.003-1.022); Urobilinogen, Urine NORM (Normal)
[2024-12-14 15:12] LABS: U Amphetamine Screen Not Detected; U Barbiturate Screen Not Detected; U Benzodiazapine Screen Not Detected; U Buprenorphine Screen Not Detected; U Cannabinoids Screen Not Detected; U Cocaine Screen Not Detected; U Methadone Screen Not Detected; U Methamphetamine Screen Not Detected; U Opiates Screen Not Detected; U Oxycodone Screen Not Detected; U Phencyclidine Screen Not Detected
[2024-12-14] MEDS ORDERED: Magnesium Sulf 2 GM/Water 50ML 50 ML IV ONE (15:30)
[2024-12-14] MEDS ORDERED: CALCIUM GLUC IN NACL, ISO-OSM 50 ML IV ONE (15:35)
[2024-12-14 15:51] LABS: pH Blood Venous 7.38 (7.34-7.37)
[2024-12-14 17:29] LABS: Thyroid Stimulating Hormone 0.646 uIU/mL (0.360-4.800)
[2024-12-14] MEDS ORDERED: LORazepam 2 MG/ML 1ML Injection ONE (18:36)
[2024-12-14 18:44] LABS: pH Blood Venous 7.30 (7.34-7.37)
[2024-12-14 19:06] LABS: BASOPHILS ABSOLUTE AUTO 0.11 K/mm3 (0.00-0.23); BASOPHILS PERCENT AUTO 0 % (0-2); EOSINOPHILS ABSOLUTE AUTO 0.01 K/mm3 (0.00-0.68); EOSINOPHILS PERCENT AUTO 0 % (0-6); Hematocrit 34.8 % (33.0-51.0); Hemoglobin 11.8 g/dL (11.5-16.0); IMMATURE GRAN ABSOLUTE AUTO 0.66 K/mm3 (0.00-0.10); IMMATURE GRAN PERCENT AUTO 2 % (0-1); LYMPHOCYTES ABSOLUTE AUTO 0.41 K/mm3 (0.84-5.20); LYMPHOCYTES PERCENT AUTO 1 % (21-46); MONOCYTES ABSOLUTE AUTO 0.91 K/mm3 (0.16-1.47); MONOCYTES PERCENT AUTO 3 % (4-13); Mean Corpuscular HGB Conc 33.9 g/dL (31.5-36.5); Mean Corpuscular Volume 92 fL (80-100); NEUTROPHILS ABSOLUTE AUTO 27.07 K/mm3 (1.96-9.15); NEUTROPHILS PERCENT AUTO 93 % (41-73); NRBC ABSOLUTE 0.04 K/mm3 (0.00-0.02); NRBC Auto 0.1 /100 WBC (0.0-0.2); RDW Coefficient Variation 11.6 % (11.7-14.2); RDW Standard Deviation 39.2 fL (35.1-46.3)
[2024-12-14 19:15] LABS: Platelet Count 269 K/mm3 (150-400)
[2024-12-14 19:20] LABS: Alanine Aminotransfer (ALT/SGP 12.0 U/L (12-78); Albumin, Blood 4.2 g/dL (3.4-5.0); Albumin/Globulin Ratio 1.6 (0.8-1.8); Anion Gap 15.0 mmol/L (3-11); Aspartate Aminotrans (AST/SGOT 20.0 U/L (12-37); Bilirubin, Total 5.3 mg/dL (0.1-1.0); Blood Urea Nitrogen 12.0 mg/dL (8-24); CO2, Blood 19.0 mmol/L (21-32); Calcium, Blood 7.9 mg/dL (8.5-10.1); Chloride, Blood 108.0 mmol/L (98-108); Creatinine, Blood 0.71 mg/dL (0.40-1.00); Globulin, Blood 2.7 g/dL (2.2-4.0); Glucose, Blood 98.0 mg/dL (70-99); Potassium, Blood 3.4 mmol/L (3.5-5.5); Sodium, Blood 139.0 mmol/L (136-145); Total Protein, Blood 6.9 g/dL (6.4-8.2)
[2024-12-14] MEDS ORDERED: CefTRIAXone Sodium 1,000 MG in NS 100 ML IV ONE (19:45)
[2024-12-14] MEDS ORDERED: Vancomycin (Pharmacy Consult) IV PRN (19:45)
[2024-12-14] MEDS ORDERED: Rocuronium Bromide 10 MG/ML 5ML Injection IV ONE (20:10)
[2024-12-14] MEDS ORDERED: Etomidate 2MG / ML 10ML Vial IV ONE (20:10)
[2024-12-14] MEDS ORDERED: FentaNYL Citrate 50 MCG/ML 2 ML Injection IV SCH (20:10)
[2024-12-14 21:00] VITALS: BP 124/70
[2024-12-15] MEDS ORDERED: Enoxaparin 40 MG/0.4 ML SYR SC SCH (09:00)
== END 2024-12-14 22:01 | disposition short-term general hospital (02) ==
LOC: ER 11:47 → EOR 11:48
PROVIDERS: Emergency Medicine; Nurse Practitioner Acute Care; ADMIT Emergency Medicine
DX: T39.312A Poisoning by propionic acid derivatives, intentional self-harm, initial encounter (principal); G92.8 Other toxic encephalopathy; G40.901 Epilepsy, unspecified, not intractable, with status epilepticus; R57.9 Shock, unspecified; E87.21 Acute metabolic acidosis; R65.10 Systemic inflammatory response syndrome (SIRS) of non-infectious origin without acute organ dysfunction; E87.6 Hypokalemia; E83.51 Hypocalcemia; R73.9 Hyperglycemia, unspecified
CPT/HCPCS: 31500; 36415; 51701; 51702; 70450; 71045; 80053; 80320; 81003; 81025; 82550; 82803; 83605; 83735; 84146; 84439; 84443; 85025; 87040; 93005; 93010; 94002; 96361; 96365-59; 96366-59; 96368; 96375-59; 96376-59; 99285-25; G0378; G0480; J0612; J2060; J2704; J3010; J3373; J3475; J3480; J7030; J7050